=== PATIENT | female | born 1980 | race African-American/Black ===

== ENCOUNTER 2017-04-09 10:56 | Emergency (ER) | payer OTHER ==
[~2017-04-09] VITALS: Ht 160 cm; Wt 85.9 kg
[~2017-04-09 10:56] MED LIST: Motrin PO; NOHOMEMEDS; PERCOCET 5/31 TABLET PO; Percocet 5/325,Endoc PO; VENTOLIN HFA18 GM IH
[2017-04-09 12:00] LABS: HEMATOCRIT 36.9 % (36.0-46.0); MCHC 30.6 G/DL (30.0-36.0); MEAN PLAT.VOLUME 10.1 uM^3 (9.5-12.4); PLATELET COUNT 414 K/uL (156-360); RBC DIS.WIDTH-CV 14.5 % (11.8-14.6); RBC DIS.WIDTH-SD 45.3 % (39-53); RED BLOOD COUNT 4.34 M/uL (3.80-5.20); WHITE BLOOD COUNT 10.6 K/uL (4.1-10.2)
[2017-04-09 12:10] LABS: CHLORIDE 107 mEq/L (99-109); POTASSIUM 3.8 mEq/L (3.7-5.4); SODIUM 141 mEq/L (136-147)
[2017-04-09 12:12] LABS: GLUCOSE 73 mg/dL (70-99)
[2017-04-09 12:13] LABS: ANION GAP 8 MEQ/L (2-14)
[2017-04-09 12:14] LABS: TOTAL BILIRUBIN 0.6 mg/dL (0.0-1.0)
[2017-04-09 12:15] LABS: ALKALINE PHOSPHATASE 65 IU/L (3-129)
[2017-04-09 12:16] LABS: GFR ESTIMATE (CALCULATED) > 59 mL/min/
[2017-04-09 12:17] LABS: UREA NITROGEN (BUN) 4 mg/dL (9-23)
[2017-04-09 12:22] LABS: ADD MIUA? YES; BILIRUBIN NEGATIVE; BLOOD NEGATIVE; COLOR YELLOW ((YELLOW)); GLUCOSE (STRIP) NEGATIVE; KETONES NEGATIVE; LEUKOCYTES NEGATIVE; NITRITE NEGATIVE; PROTEIN (STRIP) NEGATIVE; SPECIFIC GRAVITY 1.012 (1.000-1.030); UROBILINOGEN 0.2 MG/DL (0.2-1.0)
[2017-04-09 12:28] LABS: BACTERIA NONE SEEN /HPF; CALCIUM OXALATE CRYSTALS 1+ /HPF; EPITHELIAL CELLS RARE /HPF; MUCUS TRACE /LPF; RED BLOOD CELLS 0-5 /HPF (0-5); UCUL ADDED? NO; WHITE BLOOD CELLS 0-5 /HPF (0-5)
[2017-04-09 12:29] LABS: QUANTITATIVE HCG < 4.0 MIU/ML
[2017-04-09] MEDS ORDERED: TRAMADOL HCL50 MG PO (14:49)
[2017-04-09] MEDS ORDERED: MOTRIN800 MG PO (14:49)
[2017-04-09 15:15] VITALS: BP 111/65
== END 2017-04-09 15:16 | disposition home or self-care (01) ==
LOC: EME 10:56
PROVIDERS: Nurse Practitioner Family
DX: D25.9 Leiomyoma of uterus, unspecified (principal); N92.6 Irregular menstruation, unspecified; R10.30 Lower abdominal pain, unspecified; J45.909 Unspecified asthma, uncomplicated; F17.200 Nicotine dependence, unspecified, uncomplicated
CPT/HCPCS: 76856; 80053; 81003; 84702; 85027; 99281; 99283; J1885